=== PATIENT | female | born 1955 | race Caucasian/White ===

== ENCOUNTER 2018-09-27 07:34 | Inpatient (IN) | payer MEDICAID ==
[2018-09-27] VITALS (7 sets, daily range): BP systolic 98–144; BP diastolic 29–65
[~2018-09-27] VITALS: Ht 165.1 cm; Wt 114.3 kg
[~2018-09-27 07:34] MED LIST: AMA2 PO; ASC250 PO; CALC-1232 PO; CIPR-213 PO; Digoxin PO; IBUP-2028 PO; INSU3INS2 SQ; LOV40 SUBCUT; Lactulose PO; Levothyroxine Sodium PO; METO-539 PO; Multivitamins,Ther W-Minerals PO; NITR100C PO; OMEP20CA10 PO; OR220 PO; Oxybutynin Chloride PO; PHEN-910 PO; RIFA550T PO; SULF1TAB47 PO; Silver Sulfadiazine TOP
[2018-09-27] MEDS ORDERED: ONDANSETRON HCL 4MG/2ML INJ IV STA (08:39)
[2018-09-27] MEDS ORDERED: MORPHINE SULFATE 4 MG/ML CPJ (NOT FOR IM USE) IV STA (08:39)
[2018-09-27] MEDS ORDERED: MORPHINE SULFATE 10 MG/ML CPJ IV NR (09:00)
[2018-09-27] MEDS ORDERED: METOCLOPRAMIDE HCL 10MG/2ML VIAL IV ONE (09:15)
[2018-09-27 10:00] LABS: HEMATOCRIT. 29.7 % (36.0-48.0); HEMOGLOBIN. 9.3 g/dL (12.0-16.0); MEAN CORPUSCULAR HEMOGLOBIN 32.9 pg (28.0-32.0); MEAN CORPUSCULAR VOLUME 105.3 fL (81.0-99.0); PLATELET 137 x1000/uL (130-400); RED BLOOD CELL COUNT 2.82 mill/uL (4.2-5.4); RED CELL DISTRIBUTION WIDTH 15.4 % (11.6-14.6)
[2018-09-27] MEDS ORDERED: METOCLOPRAMIDE HCL 10MG TABLET PO ONE (10:00)
[2018-09-27] MEDS ORDERED: MORPHINE SULFATE 10 MG/ML CPJ IM ONE (10:00)
[2018-09-27 10:02] LABS: CHLORIDE 110 mEq/L (98-107)
[2018-09-27 10:06] LABS: ETHANOL BLOOD < 10 mg/dL
[2018-09-27 10:07] LABS: INR 2.1; PROTHROMBIN TIME 20.7 sec (9.1-11.1)
[2018-09-27 10:28] LABS: PLATELET ESTIMATE NORMAL
[2018-09-27] MEDS ORDERED: SODIUM BICARBONATE 8.4% 1 MEQ/ML 50ML SYR IV ONE (11:00)
[2018-09-27] MEDS ORDERED: SODIUM CHLORIDE 0.9% 1000ML BAG (SEPSIS BOLUS) IV ONE (11:00)
[2018-09-27] MEDS ORDERED: PIPERACILLIN/TAZ 3.375G PREMIX 50 ML IV ONE (11:00)
[2018-09-27] MEDS ORDERED: VANCOMYCIN 1 G PREMIX 200 ML IV ONE (11:00)
[2018-09-27 11:19] LABS: BG BASE EXCESS -18.2 mmol/L (-2.0-2.0); BG CARBOXYHEMOGLOBIN 1.6 % (0.5-1.5); BG DEOXYHEMOGLOBIN 1.3 % (0.0-5.0); BG HCO3 ACT 7.5 mmol/L (22.0-26.0); BG METHEMOGLOBIN 0.3 % (0.0-1.5); BG OXYGEN SATURATION 98.7 % (92.0-98.5); BG OXYHEMOGLOBIN 96.8 % (94.0-97.0); BG PCO2 18.4 mmHg (35.0-45.0); BG PH 7.229 (7.350-7.450); BG PO2 117.3 mmHg (75.0-100.0); BG SAMPLE SITE RIGHT BRACHIAL; BG TOTAL HEMOGLOBIN 9.3 g/dL (12.0-18.0); BG VENT MODE ROOM AIR
[2018-09-27] MEDS ORDERED: DOCUSATE SODIUM 100MG CAPSULE PO PRN ×2 (13:15→14:00)
[2018-09-27] MEDS ORDERED: SODIUM POLYSTYRENE SULFONATE 15 G/60 ML BOT PO ONE (13:15)
[2018-09-27] MEDS ORDERED: CLONIDINE 0.1MG TABLET PO PRN ×2 (13:15→14:00)
[2018-09-27] MEDS ORDERED: IPRATROPIUM/ALBUTEROL 0.5-3(2.5)MG/3ML NEB INH PRN ×2 (13:15→14:00)
[2018-09-27] MEDS ORDERED: PIPERACILLIN/TAZ 3.375G PREMIX 50 ML IV SCH ×2 (13:15→14:00)
[2018-09-27] MEDS ORDERED: ONDANSETRON HCL 4MG/2ML INJ IV PRN (13:15)
[2018-09-27] MEDS ORDERED: ACETAMINOPHEN 325MG TABLET PO PRN ×2 (13:15→14:00)
[2018-09-27] MEDS ORDERED: PNEUMOCOCCAL 23-VAL P-SAC VAC 0.5 ML IM ONE (18:30)
[2018-09-27] MEDS: PIPERACILLIN/TAZ 2.25G PREMIX 50 ML IV SCH (20:00)
[2018-09-27] MEDS ORDERED: VANCOMYCIN 1 G PREMIX 200 ML IV NR (21:00)
[2018-09-27] MEDS ORDERED: DEXTROSE 50% WATER 50ML SYRINGE IV PRN (23:30)
[2018-09-28] VITALS (14 sets, daily range): BP systolic 82–114; BP diastolic 44–75
[2018-09-28] MEDS: PIPERACILLIN/TAZ 2.25G PREMIX 50 ML IV SCH ×3 (03:33→21:02)
[2018-09-28 07:09] LABS: HEMATOCRIT. 23.6 % (36.0-48.0); HEMOGLOBIN. 7.8 g/dL (12.0-16.0); MEAN CORPUSCULAR HEMOGLOBIN 32.8 pg (28.0-32.0); MEAN PLATELET VOLUME 6.9 fl (7.4-10.4); PLATELET 107 x1000/uL (130-400); RED BLOOD CELL COUNT 2.38 mill/uL (4.2-5.4); RED CELL DISTRIBUTION WIDTH 14.1 % (11.6-14.6)
[2018-09-28] MEDS ORDERED: INSULIN LISPRO 100 UNITS/ML SUBCUT SCH (07:20)
[2018-09-28 07:25] LABS: CHLORIDE 110 mEq/L (98-107)
[2018-09-28] MEDS: BLOOD SUGAR DIAGNOSTIC STRIP TEST SCH ×4 (07:25→21:02)
[2018-09-28 07:33] LABS: LDL CHOLESTEROL 28 mg/dL (5-100)
[2018-09-28 07:41] LABS: HDL CHOLESTEROL 7 mg/dL (40-59)
[2018-09-28] MEDS: SODIUM CHLORIDE 0.45% 1,000 ML IV SCH (10:43)
[2018-09-28] MEDS: HYDROCODONE/ACETAMINOPHEN 5/325MG TABLET PO PRN ×2 (10:44→21:12)
[2018-09-28 11:40] LABS: NUCLEATED RED BLOOD CELLS 1 /100 WBC; PLATELET ESTIMATE DECREASED
[2018-09-28] MEDS: CITRIC ACID/SODIUM CITRATE SOLN 30ML UDC PO SCH ×3 (11:55→17:18)
[2018-09-28 12:25] LABS: BG BASE EXCESS -17.3 mmol/L (-2.0-2.0); BG CARBOXYHEMOGLOBIN 2.1 % (0.5-1.5); BG HCO3 ACT 8.6 mmol/L (22.0-26.0); BG METHEMOGLOBIN 0.3 % (0.0-1.5); BG OXYHEMOGLOBIN 95.6 % (94.0-97.0); BG PCO2 21.4 mmHg (35.0-45.0); BG PH 7.224 (7.350-7.450); BG PO2 102.8 mmHg (75.0-100.0); BG SAMPLE SITE RIGHT BRACHIAL; BG TOTAL HEMOGLOBIN 8.5 g/dL (12.0-18.0); BG VENT MODE ROOM AIR
[2018-09-28] MEDS: HYDROMORPHONE HCL/PF 2MG/ML CPJ IV PRN (14:36)
[2018-09-28] MEDS ORDERED: VANCOMYCIN 750 MG PREMIX 150 ML IV SCH (21:00)
[2018-09-29] VITALS (8 sets, daily range): BP systolic 94–132; BP diastolic 48–75
[2018-09-29] MEDS: SODIUM CHLORIDE 0.45% 1,000 ML IV SCH ×2 (00:31→05:52)
[2018-09-29 05:39] LABS: HEMATOCRIT. 21.2 % (36.0-48.0); HEMOGLOBIN. 7.2 g/dL (12.0-16.0); MEAN CORPUSCULAR HEMOGLOBIN 33.1 pg (28.0-32.0); MEAN CORPUSCULAR VOLUME 97.1 fL (81.0-99.0); RED BLOOD CELL COUNT 2.19 mill/uL (4.2-5.4); RED CELL DISTRIBUTION WIDTH 13.8 % (11.6-14.6)
[2018-09-29] MEDS: PIPERACILLIN/TAZ 2.25G PREMIX 50 ML IV SCH ×3 (05:48→21:46)
[2018-09-29] MEDS ORDERED: LEVOTHYROXINE SODIUM 50MCG TABLET PO SCH (06:50)
[2018-09-29 07:52] LABS: PLATELET ESTIMATE SLIGHTLY DECREASED
[2018-09-29] MEDS: CITRIC ACID/SODIUM CITRATE SOLN 30ML UDC PO SCH ×3 (08:13→16:42)
[2018-09-29] MEDS: HYDROMORPHONE HCL/PF 2MG/ML CPJ IV PRN ×2 (08:26→13:36)
[2018-09-29] MEDS: BLOOD SUGAR DIAGNOSTIC STRIP TEST SCH ×3 (13:04→21:22)
[2018-09-29 14:47] LABS: MEAN PLATELET VOLUME 6.7 fl (7.4-10.4); PLATELET 98 x1000/uL (130-400)
== END 2018-09-30 02:15 | disposition short-term general hospital (02) | DRG 720 ==
LOC: ER 07:34 → 3WST 12:31 → EDBEDREQTM 12:34 → EDBEDREQ 12:34 → ENRESERV 12:51 → ER 13:45 → 8WST 09-29 05:08
PROVIDERS: ADMIT Internal Medicine; ATTEND Internal Medicine
PROC: 02HV33Z Insertion of Infusion Device into Superior Vena Cava, Percutaneous Approach (ICD-10-PCS; principal; 2018-09-27)
PROC: B548ZZA Ultrasonography of Superior Vena Cava, Guidance (ICD-10-PCS; 2018-09-27)
PROC: 5A09357 Assistance with Respiratory Ventilation, Less than 24 Consecutive Hours, Continuous Positive Airway Pressure (ICD-10-PCS; 2018-09-27)
DX: A41.9 Sepsis, unspecified organism (principal); N17.9 Acute kidney failure, unspecified; D61.818 Other pancytopenia; D68.9 Coagulation defect, unspecified; E11.22 Type 2 diabetes mellitus with diabetic chronic kidney disease; E87.2 Acidosis; N18.4 Chronic kidney disease, stage 4 (severe); E44.1 Mild protein-calorie malnutrition; E66.01 Morbid (severe) obesity due to excess calories; I48.91 Unspecified atrial fibrillation; B19.20 Unspecified viral hepatitis C without hepatic coma; E03.9 Hypothyroidism, unspecified; E78.00 Pure hypercholesterolemia, unspecified; N12 Tubulo-interstitial nephritis, not specified as acute or chronic; E87.1 Hypo-osmolality and hyponatremia; E87.5 Hyperkalemia; E78.5 Hyperlipidemia, unspecified; N31.9 Neuromuscular dysfunction of bladder, unspecified; I12.9 Hypertensive chronic kidney disease with stage 1 through stage 4 chronic kidney disease, or unspecified chronic kidney disease; K74.60 Unspecified cirrhosis of liver; R16.1 Splenomegaly, not elsewhere classified; E87.8 Other disorders of electrolyte and fluid balance, not elsewhere classified; Z53.29 Procedure and treatment not carried out because of patient's decision for other reasons; Z68.41 Body mass index [BMI] 40.0-44.9, adult; Z90.49 Acquired absence of other specified parts of digestive tract; Z79.899 Other long term (current) drug therapy; Z79.4 Long term (current) use of insulin
CPT/HCPCS: 36415; 36569; 36600; 71045; 74176; 76937; 80048; 80061; 80202; 82140; 82375; 82550; 82553; 82805; 82962; 83036; 83605; 83880; 84443; 84484; 93005; 93970; 94640; 96365; 96368; 97162; 99285; C1725; G0482; J1170; J2270; J2543; J3370; J3490; J7030; J8597; A4315